=== PATIENT | male | born 1985 | race Caucasian/White ===

== ENCOUNTER → 2019-08-15 | Outpatient (CLI) | payer OTHER ==
--- NOTE | 2019-08-15 18:35 | REP ---
CT abdomen and pelvis without IV or oral contrast: History: Left inguinal pain localized. Pain with Valsalva and pressure. Question inguinal hernia. No comparison study. CT findings: Digital preliminary mainframe analyst radiograph demonstrates a normal bowel gas pattern. The lung bases are clear on axial CT images. The liver and the spleen are normal in size homogeneous in texture. No adrenal lesion is seen. No abnormalities noted in the pancreas. Kidneys are morphologically intact. No evidence of cyst or hydronephrosis is seen. Small and large intestinal bowel loops are normal in the abdomen and pelvis. A short appendix is believed to be visible along the medial aspect of the cecum. There is no CT evidence of appendicitis. No abdominal wall defect is seen. No cyst mass or adenopathy is seen in the inguinal canal region on either side. No pelvic mass or adenopathy is seen elsewhere. Prostate, seminal vesicles, urinary bladder are intact in appearance. Bone window settings show no bony destructive lesion. Impression: Normal CT study abdomen and pelvis. No inguinal hernia seen. Unremarkable CT abdomen and pelvis. Electronically Signed by Ayo Heck MD 08/15/2019 06:47 P
== END ==
LOC: M RAD 17:16
PROVIDERS: ATTEND Physician Assistant Medical
DX: R10.32 Left lower quadrant pain (principal)